=== PATIENT | female | born 1995 | race Caucasian/White ===

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

== ENCOUNTER → 2017-06-26 | Outpatient (CLI) | payer BC ==
--- NOTE | 2017-06-26 15:33 | DIAGNOSTIC IMAGING REPORT ---
R KNEE 1 OR 2 VIEWS ROUTINE HISTORY: 22 years-old Female M25.561 Right knee [id number] acute right knee pain without known injury COMPARISON: None available TECHNIQUE: 2 views of the right knee FINDINGS: There is no acute fracture, dislocation or significant degenerative changes. No osteochondral defect. No large joint effusion, significant soft tissue swelling or opaque foreign body. IMPRESSION: No acute bony abnormality. The above report was generated using voice recognition software. It may contain grammatical, syntax or spelling errors. Electronically signed by: Sheng Sigala M.D. 06/26/2017 3:32 PM Dictated Date/Time: 06/26/2017 3:31 PM
== END | disposition home or self-care (01) ==
LOC: C.RAD 15:06
PROVIDERS: ATTEND Family Medicine
DX: M25.561 Pain in right knee (principal)

== ENCOUNTER → 2017-06-26 | Outpatient (CLI) | payer BC ==
[2017-06-26 13:03] LABS: HEMATOCRIT 35.1 % (37-47); HEMOGLOBIN 11.8 g/dL (12.0-16.0); MEAN CORPUSCULAR HEMOGLOBIN 28.6 pg (25-34); MEAN CORPUSCULAR HGB CONC 33.6 g/dl (32-36); MEAN PLATELET VOLUME 10.2 fL (7.4-10.4); PLATELET COUNT 287 K/uL (130-400); RED CELL DISTRIBUTION WIDTH SD 39.7 fL (36.4-46.3); WHITE BLOOD COUNT 7.19 K/uL (4.8-10.8)
[2017-06-26 14:11] LABS: BLOOD UREA NITROGEN 11 mg/dl (7-18); CARBON DIOXIDE 25 mmol/L (21-32); CREATININE 1.04 mg/dl (0.60-1.20); GLUCOSE 88 mg/dl (70-99); POTASSIUM 3.9 mmol/L (3.5-5.1); SODIUM 138 mmol/L (136-145)
[2017-06-26 14:22] LABS: CHOLESTEROL 161 mg/dl (0-200); LDL CHOLESTEROL CALCULATED 92 mg/dl
== END | disposition home or self-care (01) ==
LOC: C.LABPBG 09:49
PROVIDERS: ATTEND Family Medicine
DX: R10.30 Lower abdominal pain, unspecified (principal); N92.6 Irregular menstruation, unspecified; Z13.220 Encounter for screening for lipoid disorders; Z85.528 Personal history of other malignant neoplasm of kidney

== ENCOUNTER 2021-04-03 08:33 | Inpatient (IN) ==
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
[2021-04-03] MEDS ORDERED: OXYTOCIN 30 UNITS/500 ML BAG IV PRN ×2 (09:30→13:09)
[2021-04-03 10:16] LABS: Hematocrit (blood only) 32.5 % (37-47); Hemoglobin 10.7 g/dL (12.0-16.0); Mean Corpuscular Hemoglobin 29.6 pg (25-34); Mean Corpuscular Hgb Conc 32.9 g/dL (32-36); Mean Corpuscular Volume 89.8 fL (80-100); Platelet Count 243 K/uL (130-400); RDW Coefficient of Variation 14.1 % (11.5-14.5); RDW Standard Deviation 46.2 fL (36.4-46.3); Red Blood Count 3.62 M/uL (4.2-5.4); White Blood Count 11.08 K/uL (4.8-10.8)
[2021-04-03] MEDS ORDERED: Flu Vaccine (Fluarix) 0.5mL SYR (Standard Dose) IM ONE (12:15)
--- NOTE | 2021-04-03 13:09 | Labor Progress Brief Note ---
Date of Service April 03, 2021 Subjective NOts some contractions more painful but most feel like bad menstrual cramps. Assessment & Plan (1) PROM (premature rupture of membranes): (2) with 41 completed weeks gestation: Plan: Discussed options as the same --expectant vs. starting augmentation. Discussed pros/cons of both. They are ok with starting pitocin. fetus category one. Admission and Anticipated Discharge Date Admission Date: April 03, 2021 Physical Exam Physical Exam: cx--unchanged toco--q3-5min efm--130s wtih mod variability, accels to 160s, no decels Results & Data ([place]) Vital Signs (Past 12 Hours) Vital Signs Temp Pulse Resp BP 04/03/21 12:45 36.4 C L 74 20 138/77 04/03/21 11:09 36.4 C L 66 18 142/73 H 04/03/21 09:04 36.7 C 20 04/03/21 08:39 36.7 C 68 20 136/77 Coding Level of Care Code None Diagnoses PROM (premature rupture of membranes) O42.90 with 41 completed weeks gestation Z3A.41
[2021-04-03] MEDS: LACTATED RINGER'S 1,000 ML IV PRN ×3 (13:21→22:15)
[2021-04-03] MEDS ORDERED: BUTORPHANOL TARTRATE 1 MG/ML VIAL IV ONE (15:12)
--- NOTE | 2021-04-03 16:38 | Labor Progress Brief Note ---
Date of Service April 03, 2021 Subjective notes rectal pressure. did note that the stadol helped some. Assessment & Plan (1) PROM (premature rupture of membranes): Plan: Discussed that stadol not for [facility] pain management, and can't be used after 7cm because of concern for sedation of the baby. she is afraid of an epidural because of concern for hurting her spine. Offered anesthesia consult and discussion, declines at this time. Discussed potential need for iupc. Admission and Anticipated Discharge Date Admission Date: April 03, 2021 Physical Exam Physical Exam: cx--unchanged toco--q2-4min, pit at 9 efm--120s with mod variability, accels to 150s, no decels. Results & Data ([facility]) Vital Signs (Past 12 Hours) Vital Signs Temp Pulse Resp BP 04/03/21 16:04 53 L 126/74 04/03/21 15:03 36.6 C 65 20 142/82 H 04/03/21 13:48 36.6 C 62 20 133/80 04/03/21 12:45 36.4 C L 74 20 138/77 04/03/21 11:09 36.4 C L 66 18 142/73 H 04/03/21 09:04 36.7 C 20 04/03/21 08:39 36.7 C 68 20 136/77 Coding Level of Care Code None Diagnoses PROM (premature rupture of membranes) O42.90
[2021-04-03] MEDS ORDERED: SODIUM CHLORIDE 0.9% INJ 10 ML VIAL ONE (17:44)
[2021-04-03] MEDS ORDERED: BUPIVACAINE 0.25% 30 ML VIAL ONE (17:44)
[2021-04-03] MEDS ORDERED: ePHEDrine sulfate 50 MG/ML AMP ONE (17:44)
[2021-04-03] MEDS ORDERED: fentaNYL citrate 100 MCG/2 ML VIAL ONE (17:44)
[2021-04-03] MEDS ORDERED: fentaNYL 2MCG/ML ROPIVACAINE 1.25MG/ML 100 ML BAG EPI ONE (17:45)
[2021-04-03] MEDS ORDERED: fentaNYL 2MCG/ML ROPIVACAINE 1.25MG/ML 100 ML BAG EPI PRN (17:50)
[2021-04-03] MEDS ORDERED: NALOXONE HCL 1 MG in SODIUM CHLORIDE 0.9% 1000ML 1,000 ML IV PRN (17:50)
[2021-04-03] MEDS ORDERED: NALOXONE HCL 0.4 MG/1 ML VIAL/CARP IV PRN (17:50)
[2021-04-03] MEDS ORDERED: ATROPINE SULFATE 0.1 MG/ML 10ML SYR IV PRN (17:50)
[2021-04-03] MEDS ORDERED: diphenhydrAMINE 50 MG/ML VIAL IV PRN (17:50)
[2021-04-03] MEDS ORDERED: ePHEDrine sulfate 50 MG/ML AMP IV PRN ×2 (17:50)
[2021-04-03] MEDS ORDERED: NALBUPHINE HCL INJ 10 MG/ML AMP IV PRN (17:50)
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
--- NOTE | 2021-04-03 19:29 | Labor Progress Brief Note ---
Date of Service April 03, 2021 Subjective comfortable with epidural Assessment & Plan (1) with 41 completed weeks gestation: (2) PROM (premature rupture of membranes): Plan: continue current management. fetus overall reassuring. making change. Admission and Anticipated Discharge Date Admission Date: April 03, 2021 Physical Exam Physical Exam: cx--4-5/100/-2 arom of forebag with light mec toco--q2-3 min , pit at 11 efm--120 with mod variability, accels to 150s, +scalp stim, rare early Results & Data ([facility]) Vital Signs (Past 12 Hours) Vital Signs Temp Pulse Resp BP Pulse Ox 04/03/21 19:25 63 89 L 04/03/21 19:22 71 100 04/03/21 19:17 54 L 100 04/03/21 19:12 65 119/61 100 04/03/21 19:07 55 L 100 04/03/21 19:02 56 L 100 04/03/21 19:00 36.5 C 20 04/03/21 18:57 60 100 04/03/21 18:56 54 L 128/64 91 04/03/21 18:52 53 L 100 04/03/21 18:47 64 100 04/03/21 18:42 67 98 04/03/21 18:37 63 100 04/03/21 18:36 57 L 127/67 04/03/21 18:32 70 100 04/03/21 18:31 61 118/62 04/03/21 18:27 56 L 100 04/03/21 18:25 56 L 124/63 04/03/21 18:22 58 L 100 04/03/21 18:19 52 L 124/61 04/03/21 18:17 62 118/59 L 100 04/03/21 18:15 64 120/61 04/03/21 18:13 62 123/70 04/03/21 18:12 55 L 100 04/03/21 18:11 49 L 127/67 04/03/21 18:09 55 L 134/64 04/03/21 18:07 80 100 04/03/21 18:04 116 H 142/95 H 04/03/21 18:02 110 H 94 04/03/21 17:57 62 100 04/03/21 17:52 76 100 04/03/21 17:00 36.7 C 04/03/21 16:04 53 L 126/74 04/03/21 15:03 36.6 C 65 20 142/82 H 04/03/21 13:48 36.6 C 62 20 133/80 04/03/21 12:45 36.4 C L 74 20 138/77 04/03/21 11:09 36.4 C L 66 18 142/73 H 04/03/21 09:04 36.7 C 20 04/03/21 08:39 36.7 C 68 20 136/77 Coding Level of Care Code None Diagnoses with 41 completed weeks gestation Z3A.41 PROM (premature rupture of membranes) O42.90
[2021-04-03] MEDS ORDERED: ONDANSETRON INJ 2 MG/ML 2 ML VIAL IV PRN (20:37)
--- NOTE | 2021-04-03 20:40 | Labor Progress Brief Note ---
Date of Service April 03, 2021 Subjective comfortable Assessment & Plan (1) Encounter for pre-operative examination: (2) with 41 completed weeks gestation: Plan: making rapid progress after rupture of forebag. head is really pressing down on the cervix so suspect most of the variables are like early with head compression. Will continue to monitor closely, change positions. Anticipating . Admission and Anticipated Discharge Date Admission Date: April 03, 2021 Physical Exam Physical Exam: cx--8-9/100/-1 toco--q2-5min, coupling, pit at [address] iupc failed, could not get around head efm--120s with mod variaibility, variables with contractions, some with a ? late component, excellent scalp stim Results & Data ([facility]) Vital Signs (Past 12 Hours) Vital Signs Temp Pulse Resp BP Pulse Ox 04/03/21 20:32 85 100 04/03/21 20:31 83 91 04/03/21 20:27 62 127/76 100 04/03/21 20:22 61 100 04/03/21 20:17 54 L 100 04/03/21 20:12 58 L 129/74 100 04/03/21 20:09 73 91 04/03/21 20:07 56 L 100 04/03/21 20:02 59 L 100 04/03/21 19:57 61 100 04/03/21 19:56 56 L 127/69 04/03/21 19:52 56 L 100 04/03/21 19:47 61 100 04/03/21 19:42 78 114/76 100 04/03/21 19:37 76 100 04/03/21 19:32 101 H 100 04/03/21 19:27 81 98 04/03/21 19:25 63 89 L 04/03/21 19:22 71 100 04/03/21 19:17 54 L 100 04/03/21 19:12 65 119/61 100 04/03/21 19:07 55 L 100 04/03/21 19:02 56 L 100 04/03/21 19:00 36.5 C 20 04/03/21 18:57 60 100 04/03/21 18:56 54 L 128/64 91 04/03/21 18:52 53 L 100 04/03/21 18:47 64 100 04/03/21 18:42 67 98 04/03/21 18:37 63 100 04/03/21 18:36 57 L 127/67 04/03/21 18:32 70 100 04/03/21 18:31 61 118/62 04/03/21 18:27 56 L 100 04/03/21 18:25 56 L 124/63 04/03/21 18:22 58 L 100 04/03/21 18:19 52 L 124/61 04/03/21 18:17 62 118/59 L 100 04/03/21 18:15 64 120/61 04/03/21 18:13 62 123/70 04/03/21 18:12 55 L 100 04/03/21 18:11 49 L 127/67 04/03/21 18:09 55 L 134/64 04/03/21 18:07 80 100 04/03/21 18:04 116 H 142/95 H 04/03/21 18:02 110 H 94 04/03/21 17:57 62 100 04/03/21 17:52 76 100 04/03/21 17:00 36.7 C 04/03/21 16:04 53 L 126/74 04/03/21 15:03 36.6 C 65 20 142/82 H 04/03/21 13:48 36.6 C 62 20 133/80 04/03/21 12:45 36.4 C L 74 20 138/77 04/03/21 11:09 36.4 C L 66 18 142/73 H 04/03/21 09:04 36.7 C 20 04/03/21 08:39 36.7 C 68 20 136/77 Coding Level of Care Code None Diagnoses Encounter for pre-operative examination Z01.818 with 41 completed weeks gestation Z3A.41
--- NOTE | 2021-04-03 22:09 | Labor Progress Brief Note ---
Date of Service April 03, 2021 Subjective comfortable Assessment & Plan (1) with 41 completed weeks gestation: (2) PROM (premature rupture of membranes): Plan: continues to make progress. Will need to restart pitocin to get contractions a bit closer than every 5 minutes if the baby tolerates. Much improved, category one strip. recheck in one hour and hopefully start pushing. Admission and Anticipated Discharge Date Admission Date: April 03, 2021 Physical Exam Physical Exam: cx--ant lip/0 toco--q5min, pit off efm--120s with mod variability, accels present, +scal stim decels resolved with pit off, o2, position change, fluids Results & Data ([facility]) Vital Signs (Past 12 Hours) Vital Signs Temp Pulse Resp BP Pulse Ox 04/03/21 22:02 55 L 100 04/03/21 21:57 50 L 100 04/03/21 21:56 50 L 120/62 04/03/21 21:52 52 L 100 04/03/21 21:47 57 L 100 04/03/21 21:42 56 L 100 04/03/21 21:41 52 L 119/69 04/03/21 21:37 55 L 100 04/03/21 21:32 54 L 100 04/03/21 21:27 53 L 100 04/03/21 21:26 56 L 123/70 04/03/21 21:22 55 L 100 04/03/21 21:17 57 L 100 04/03/21 21:12 52 L 100 04/03/21 21:11 53 L 119/65 04/03/21 21:07 50 L 100 04/03/21 21:02 55 L 100 04/03/21 20:57 64 100 04/03/21 20:56 51 L 129/61 04/03/21 20:52 70 100 04/03/21 20:47 65 100 04/03/21 20:42 82 100 04/03/21 20:41 95 H 128/86 04/03/21 20:37 120 H 100 04/03/21 20:32 85 100 04/03/21 20:31 83 91 04/03/21 20:27 62 127/76 100 04/03/21 20:22 61 100 04/03/21 20:17 54 L 100 04/03/21 20:12 58 L 129/74 100 04/03/21 20:09 73 91 04/03/21 20:07 56 L 100 04/03/21 20:02 59 L 100 04/03/21 19:57 61 100 04/03/21 19:56 56 L 127/69 04/03/21 19:52 56 L 100 04/03/21 19:47 61 100 04/03/21 19:42 78 114/76 100 04/03/21 19:37 76 100 04/03/21 19:32 101 H 100 04/03/21 19:27 81 98 04/03/21 19:25 63 89 L 04/03/21 19:22 71 100 04/03/21 19:17 54 L 100 04/03/21 19:12 65 119/61 100 04/03/21 19:07 55 L 100 04/03/21 19:02 56 L 100 04/03/21 19:00 36.5 C 20 04/03/21 18:57 60 100 04/03/21 18:56 54 L 128/64 91 04/03/21 18:52 53 L 100 04/03/21 18:47 64 100 04/03/21 18:42 67 98 04/03/21 18:37 63 100 04/03/21 18:36 57 L 127/67 04/03/21 18:32 70 100 04/03/21 18:31 61 118/62 04/03/21 18:27 56 L 100 04/03/21 18:25 56 L 124/63 04/03/21 18:22 58 L 100 04/03/21 18:19 52 L 124/61 04/03/21 18:17 62 118/59 L 100 04/03/21 18:15 64 120/61 04/03/21 18:13 62 123/70 04/03/21 18:12 55 L 100 04/03/21 18:11 49 L 127/67 04/03/21 18:09 55 L 134/64 04/03/21 18:07 80 100 04/03/21 18:04 116 H 142/95 H 04/03/21 18:02 110 H 94 04/03/21 17:57 62 100 04/03/21 17:52 76 100 04/03/21 17:00 36.7 C 04/03/21 16:04 53 L 126/74 04/03/21 15:03 36.6 C 65 20 142/82 H 04/03/21 13:48 36.6 C 62 20 133/80 04/03/21 12:45 36.4 C L 74 20 138/77 04/03/21 11:09 36.4 C L 66 18 142/73 H Coding Level of Care Code None Diagnoses with 41 completed weeks gestation Z3A.41 PROM (premature rupture of membranes) O42.90
--- NOTE | 2021-04-03 23:30 | Labor Progress Brief Note ---
Date of Service April 03, 2021 Subjective comfortable Assessment & Plan (1) with 41 completed weeks gestation: (2) PROM (premature rupture of membranes): Plan: start second stage. Overall reassuring fetus. anticipate . Admission and Anticipated Discharge Date Admission Date: April 03, 2021 Physical Exam Physical Exam: cx--c/c/+2, tabatha toco--q3-5, pit at 2 efm--110 with mod variability, small accels, +scalp stim, occasional variable. Results & Data ([facility]) Vital Signs (Past 12 Hours) Vital Signs Temp Pulse Resp BP Pulse Ox 04/03/21 23:22 80 100 04/03/21 23:17 56 L 100 04/03/21 23:13 54 L 107/53 L 04/03/21 23:12 55 L 100 04/03/21 23:07 56 L 100 04/03/21 23:02 56 L 100 04/03/21 22:57 64 100 04/03/21 22:56 36.8 C 57 L 18 110/60 04/03/21 22:52 85 100 04/03/21 22:47 67 100 04/03/21 22:42 85 100 04/03/21 22:41 53 L 126/66 04/03/21 22:37 54 L 100 04/03/21 22:32 52 L 100 04/03/21 22:27 52 L 127/65 100 04/03/21 22:22 50 L 100 04/03/21 22:17 59 L 100 04/03/21 22:12 55 L 100 04/03/21 22:11 36.6 C 51 L 20 121/67 04/03/21 22:07 58 L 100 04/03/21 22:02 55 L 100 04/03/21 21:57 50 L 100 04/03/21 21:56 50 L 120/62 04/03/21 21:52 52 L 100 04/03/21 21:47 57 L 100 04/03/21 21:42 56 L 100 04/03/21 21:41 52 L 119/69 04/03/21 21:37 55 L 100 04/03/21 21:32 54 L 100 04/03/21 21:27 53 L 100 04/03/21 21:26 56 L 123/70 04/03/21 21:22 55 L 100 04/03/21 21:17 57 L 100 04/03/21 21:12 52 L 100 04/03/21 21:11 53 L 119/65 04/03/21 21:07 50 L 100 04/03/21 21:02 55 L 100 04/03/21 20:57 64 100 04/03/21 20:56 51 L 129/61 04/03/21 20:52 70 100 04/03/21 20:47 65 100 04/03/21 20:42 82 100 04/03/21 20:41 95 H 128/86 04/03/21 20:37 120 H 100 04/03/21 20:32 85 100 04/03/21 20:31 83 91 04/03/21 20:27 62 127/76 100 04/03/21 20:22 61 100 04/03/21 20:17 54 L 100 04/03/21 20:12 58 L 129/74 100 04/03/21 20:09 73 91 04/03/21 20:07 56 L 100 04/03/21 20:02 59 L 100 04/03/21 19:57 61 100 04/03/21 19:56 56 L 127/69 04/03/21 19:52 56 L 100 04/03/21 19:47 61 100 04/03/21 19:42 78 114/76 100 04/03/21 19:37 76 100 04/03/21 19:32 101 H 100 04/03/21 19:27 81 98 04/03/21 19:25 63 89 L 04/03/21 19:22 71 100 04/03/21 19:17 54 L 100 04/03/21 19:12 65 119/61 100 04/03/21 19:07 55 L 100 04/03/21 19:02 56 L 100 04/03/21 19:00 36.5 C 20 04/03/21 18:57 60 100 04/03/21 18:56 54 L 128/64 91 04/03/21 18:52 53 L 100 04/03/21 18:47 64 100 04/03/21 18:42 67 98 04/03/21 18:37 63 100 04/03/21 18:36 57 L 127/67 04/03/21 18:32 70 100 04/03/21 18:31 61 118/62 04/03/21 18:27 56 L 100 04/03/21 18:25 56 L 124/63 04/03/21 18:22 58 L 100 04/03/21 18:19 52 L 124/61 04/03/21 18:17 62 118/59 L 100 04/03/21 18:15 64 120/61 04/03/21 18:13 62 123/70 04/03/21 18:12 55 L 100 04/03/21 18:11 49 L 127/67 04/03/21 18:09 55 L 134/64 04/03/21 18:07 80 100 04/03/21 18:04 116 H 142/95 H 04/03/21 18:02 110 H 94 04/03/21 17:57 62 100 04/03/21 17:52 76 100 04/03/21 17:00 36.7 C 04/03/21 16:04 53 L 126/74 04/03/21 15:03 36.6 C 65 20 142/82 H 04/03/21 13:48 36.6 C 62 20 133/80 04/03/21 12:45 36.4 C L 74 20 138/77 Coding Level of Care Code None Diagnoses with 41 completed weeks gestation Z3A.41 PROM (premature rupture of membranes) O42.90
[2021-04-04] MEDS ORDERED: DIPHTHERIA/TETANUS/PERTUSSIS 0.5 ML SYR/VIAL IM ONE (00:29)
[2021-04-04] MEDS ORDERED: BENZOCAINE 20% AER SPR 82.5 GM CAN EXT PRN (00:29)
[2021-04-04] MEDS ORDERED: ACETAMINOPHEN 325 MG TAB PO PRN (00:29)
[2021-04-04] MEDS ORDERED: IBUPROFEN 600 MG TAB PO PRN (00:29)
[2021-04-04] MEDS ORDERED: OXYTOCIN 30 UNITS/500 ML BAG IV PRN (00:29)
[2021-04-04] MEDS ORDERED: HYDROCORTISONE ACETATE 25 MG SUPP PR PRN (00:29)
[2021-04-04] MEDS ORDERED: oxyCODONE/ACETAMINOPHEN 5mg/325mg TAB PO PRN (00:29)
[2021-04-04] MEDS ORDERED: SUPERCREAM 0.870% 15 GM JAR EXT PRN (00:29)
--- NOTE | 2021-04-04 00:37 | Delivery Summary ---
Vaginal Delivery Summary Date of Service April 04, 2021 Vaginal Delivery Summary and 1st Degree LAC Pre-operative Diagnosis: at 41+ weeks pprom Post-operative Diagnosis: same meconium Procedure: pitocin augmentation epidural arom forebag--meconium first degree lac and repair EBL: 350cc Anesthesia: epidural Procedure: The patient was admitted with prom. She was expectantly managed for 6 hours and then accepted pitocin. She eventually got an epidural. She was then 5cm and a forebag was ruptured for thin meconium. the patient progressed with intermittent variables and some appeared late and so pitocin was d/c. The patient continued to progress and fht improved with d/c. did need to restart the pit and got to 2mu/min to get the contractions a bit closer together. Baseline was in 105-110 for the later part of the labor but always had reassuring variability and scalp stim. The patient progressed to c/c/+2. The patient pushed for approximately 15 minutes with good effort to deliver a viable male in susanna position. FHT in 90s with good response to scalp stim during pushing. A large amount of thin meconium fluid came out after the head. The nose and mouth were bulb suctioned on the perineum and the rest of the infant was then delivered without difficulty. The baby was vigorous. The nose and mouth were again bulb suctioned and the infant was placed in the maternal abdomen for drying and attention. Cord was clamped and cut at one minute of life. Cord blood and segment obtained. Placenta delivered spontaneous, intact with a three vessel cord. Cervix/sulci/rectum/perineum were intact. A first degree vaginal laceration was repaired in the normal standard fashion. Hemostasis obtained with dilute pitocin and fundal massage. Apgars were 8/9. Mother and baby doing well at the end of the delivery. [facility] Vaginal Delivery Charge Delivery Type Details: and 1st Degree LAC
--- NOTE | 2021-04-04 01:09 | Anesthesia Procedure Note ---
Date of Service April 04, 2021 Anesthesia Post Epidural Note Vital Signs Vital Signs: Temp Pulse Resp BP Pulse Ox 98.2 F 82 18 120/63 100 04/03/21 22:56 04/04/21 00:56 04/03/21 22:56 04/04/21 00:56 04/04/21 00:07 Notes Mental Status: alert / awake / arousable and participated in evaluation Nausea / Vomiting: adequately controlled Pain: adequately controlled Airway Patency, RR, SpO2: stable & adequate BP & HR: stable & adequate Hydration State: stable & adequate Neuraxial Anesthesia: was administered and sensory block is resolving Anesthetic Complications: no major complications apparent and Pt Satisfied with anesthetic care Epidural: Removed without complications and With tip intact
[2021-04-04 06:50] LABS: Hemoglobin 9.3 g/dL (12.0-16.0)
[2021-04-04] MEDS: PRENATAL VITAMIN 1 TAB PO SCH (08:08)
[2021-04-04] MEDS: DOCUSATE SODIUM 100 MG CAP PO SCH ×2 (08:09→21:02)
--- NOTE | 2021-04-05 06:55 | Obstetrical Progress Note ---
Date of Service <Ignacio Bolaños DO - Last Filed: 04/05/21 08:18> April 05, 2021 Assessment & Plan <Ignacio Bolaños DO - Last Filed: 04/05/21 08:18> (1) Encounter for care and examination after delivery: 25 yo post day 1 from vaginal delivery, doing well. -Continue routine post care. -vital signs reviewed and WNL. (Tmax 36.9) -Blood type A+, GBS negative, Rubella Immune -Encourage ambulation, monitor and control pain with Motrin, tylenol PRN, resume regular diet, monitor lochia. -encourage breast feeding. -Discussed discharge with the patient. Patient will follow up with Dr. Rodríguez at 6 weeks post . <Elliot Valenzuela MD - Last Filed: 04/08/21 08:19> (1) Encounter for care and examination after delivery: Subjective <Ignacio Bolaños DO - Last Filed: 04/05/21 08:18> Ambulation: ambulating normally Voiding: no voiding problems Passing Gas:: Yes Diet Tolerance:: regular diet Lochia:: Small Feeding Type:: breast feeding Current Pain Level(1-10): 0 Review of Systems Denies fever, chills, sweats Denies shortness of breath, difficulty breathing, chest pain, palpitations, chest pressure. Denies breast pain. Denies dysuria. Denies headache or changes in vision Physical Exam <Ignacio Bolaños DO - Last Filed: 04/05/21 08:18> General: Alert, oriented. No acute distress. Cardiac: Regular rate and rhythm, no murmurs/rubs/gallops. Respiratory: Clear to auscultation bilaterally a/p, no wheezes/rales/rhonchi. No increased work of breathing. Symmetrical chest rise. No respiratory distress. Abdomen: Soft, nontender, nondistended. Bowel sounds present. Uterus: Uterine fundus firm, palpable 3 cm below umbilicus. Lower Extremities: No lower extremity edema or swelling. No deep calf pain. Heladio's negative bilaterally Results & Data ([facility]) <Ignacio Bolaños DO - Last Filed: 04/05/21 08:18> Vital Signs (Past 12 Hours) Vital Signs Temp Pulse Resp BP Pulse Ox 04/05/21 00:45 36.7 C 85 17 114/68 100 04/04/21 19:45 36.9 C 77 20 136/82 100 <Elliot Valenzuela MD - Last Filed: 04/08/21 08:19> Co-Signing Physician Notes Patient seen and evaluated and agree with the above findings and plan. Routine care Resident Activity Tracking <Ignacio Bolaños DO - Last Filed: 04/05/21 08:18> Resident Involvement: Resident Care Provided Care Provided: OB Delivery
[2021-04-05] MEDS: PRENATAL VITAMIN 1 TAB PO SCH (08:28)
[2021-04-05] MEDS: DOCUSATE SODIUM 100 MG CAP PO SCH (08:28)
[2021-04-05] MEDS ORDERED: ESCITALOPRAM OXALATE 20 MG TAB PO SCH (09:00)
--- NOTE | 2021-04-05 15:08 | Communication Note ---
Date of Service: April 05, 2021 per nurse pt was expecting dc home. she is ready to go home per nurse. note reviewed from this am team. will make sure dc instructions reviewed and plan 6wk followup pp check.
[2021-04-05] MEDS ORDERED: bisacodyL 5 MG TABEC PO SCH (20:00)
[2021-04-06] MEDS ORDERED: bisacodyL 10 MG SUPP PR PRN
== END 2021-04-05 16:10 | disposition home or self-care (01) | DRG 807 ==
LOC: OPB 08:33 → 4S1 08:35 → 4S2 04-04 03:03 → UNDODISIN 04-04 12:30

== ENCOUNTER 2022-10-10 18:00 | Inpatient (IN) ==
[2022-10-10] MEDS ORDERED: SODIUM CHLORIDE 0.9% 1000ML 1,000 ML IV ONE ×2 (18:09→19:33)
[2022-10-10] MEDS ORDERED: ONDANSETRON INJ 2 MG/ML 2 ML VIAL IV STA (18:21)
--- NOTE | 2022-10-10 18:26 | Emergency Department Note ---
Impression & Plan UTI (urinary tract infection), Sepsis, Acute hypokalemia, Hypomagnesemia ED Provider Note HISTORY OF PRESENT ILLNESS: Patient is a 27-year-old female presenting with vomiting and diarrhea. Patient reports she has been unable to keep any thing by mouth down for the last 5 days. Reports that she has had multiple episodes of vomiting and explosive diarrhea. Reports fevers up to 102 today. She last took Tylenol at 1300. Reports lower abdominal pain with vomiting and diarrhea. 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 Denies any dysuria. Reports that the left flank hurts where her kidney is. Denies any recent sick contact exposures. Denies any recent travel. Denies any rashes. ROS: as above PHYSICAL EXAM: Constitutional: Patient appears in no acute distress. HENT: Head: Normocephalic and atraumatic. Eyes: EOMI, PERRL Mouth/Throat: Mucous membranes dry. Neck: Trachea midline. Neck supple. Cardiovascular: Tachycardic with regular rhythm. No murmurs, rubs or gallops. Intact distal pulses. Pulmonary/Chest: No respiratory distress. Breath sounds clear and equal bilaterally. No wheezes or rales. No chest wall tenderness to palpation. Abdominal: Abdomen soft, no rebound or guarding. Bilateral lower quadrant TTP. Musculoskeletal: No edema, tenderness or deformity noted. Skin: Warm and dry. No rash, erythema, pallor or cyanosis Psychiatric: Appropriate mood and affect for situation. Neurological: Alert and keenly responsive. CN II-XII grossly intact, moving all extremities equally and fully. MDM: - Vitals signs showed fever and tachycardia. - History obtained via patient. Patient presents with vomiting and diarrhea. Patient reports has been unable to tolerate anything by mouth for the last 5 days. Reports multiple episodes of vomiting and explosive diarrhea. Reports a fever up to 102 today. Reports lower abdominal pain with the vomiting and diarrhea. She has a history of a right-sided nephrectomy secondary to Wilms carissa or. Denies any dysuria. Denies any recent travel or recent sick contact exposure - Chronic conditions affecting care: depression; Wilms' tumor (s/p right nephrectomy) - Differential diagnoses include, but are not limited to: UTI; viral syndrome; diverticulitis; colitis - Order placed for continuous cardiac monitoring. At this time, monitor showed rate of 86 bpm with normal sinus rhythm, per my interpretation. - External medical records reviewed. - Laboratory workup interpreted by myself showed leukocytosis (WBC 11.84) with left shift; normal lactate; hypokalemia (K 3.2); normal creatinine; hypomagnesemia (Mg 1.6); normal procalcitonin - UA shows evidence of infection - CT abdomen/pelvis wo contrast negative for acute pathology. - Patient given 2L NS and 1g IV acetaminophen for fever. Given 1g IV rocephin for UTI. Electrolyte replacement with 10 mEq IV potassium and 1g IV magnesium - Patient meets sepsis criteria. Given patient's 1 kidney in the setting of urinary tract infection and sepsis, will admit to the hospital - Discussion was had with social service assistant about patient's case and need for admission - Hospitalist consulted for admission - [facility] and management. I provided 31 minutes of critical care time to this patient's care outside of billable procedures. ASSESSMENT AND PLAN: Diagnosis: sepsis; UTI; hypokalemia; hypomagnesemia Plan: admit Past Med/Surg History Medical History Acute left-sided back pain Allergic rhinitis Depression with anxiety Encounter for care and examination after delivery Encounter for pre-operative examination Encounter for vaginal delivery GERD (gastroesophageal reflux disease) History of Wilms' tumor (1999) Juvenile rheumatoid arthritis Migraine Post traumatic stress disorder (PTSD) with 41 completed weeks gestation Premenstrual syndrome PROM (premature rupture of membranes) Seizures Solitary left kidney Vitamin D deficiency Surgical History History of appendectomy History of nephrectomy, right (07/1999) History of wisdom tooth extraction Hx of esophagogastroduodenoscopy Family History Father Diabetes Hypertension Mother Diabetes Colonic polyp Depression Grandmother (Paternal) Diabetes Grandmother (Maternal) Kidney disease Diabetes Depression Myocardial infarction Grandfather (Paternal) Prostate cancer Sister Gestational diabetes Other No family history of adverse response to anesthesia Denies family history of Ovarian cancer Breast cancer Colorectal cancer Social History Smoking Status: Former smoker Tobacco Type: E-cigarettes / Vaping Second Hand Exposure: Yes; Do You Dip or Chew Tobacco: No; Hx Alcohol Use: No Hx Substance Use: No Preferred Language: Tamazight Communication Ability: Effective Visual Impairment: Limited Hearing Ability: Normal Cementer Hand Required: No Beliefs That Will Affect Care: None marital status: Single marital status details: Tulio Vazquez (27) [phone] Current Living Situation: Significant Other Current Living Situation Comment: lives with fob, no pets current occupational status: unemployed How many Children do You have: 1 How many Children do You have Comment: 1 child + 2 step children (1st, 3rd, 4th weekend every month) Feels Safe at Home: Yes Childhood Exposure to Second-Hand Smoke: No Diet: regular caffeine: Yes (Soda x 2 per day. ) during the past year weight has: remained stable Dental Care, Regularly: Yes Physical Activity Frequency: Daily Seatbelt Use: always Sunscreen Use: No Assistive Devices: Glasses Allergies Allergies Allergy/AdvReac Type Severity Reaction Status Date / Time adhesive Allergy Intermediate IRRITATION Verified 08/11/22 12:36 TO SKIN, REDNESS pollen extracts Allergy Intermediate ITCHY Verified 08/11/22 12:36 EYES, SNEEZING, COUGH, CONGESTION Sulfa (Sulfonamide Allergy Unknown FAMILY HX. Verified 08/11/22 12:36 Antibiotics) Home Meds Home Medications Medication Instructions Recorded Confirmed cetirizine 10 mg tablet (Zyrtec) 10 mg PO HS 10/10/22 10/10/22 sertraline 100 mg tablet 100 mg PO QPM 10/10/22 10/10/22 Previous Rx's Medication Instructions Recorded levonorgestrel 0.15 mg-ethinyl 1 tab PO HS #84 tabs 12/27/21 estradiol 0.03 mg tablet (Janet (28)) Results & Data (ED) Vital Signs Vital Signs - 24 hr 10/10/22 18:09 10/10/22 18:44 Temperature 38.1 C H Temperature Source Temporal Artery Scan Pulse Rate 108 H 100 H Respiratory Rate 18 Respiratory Effort / Characteristics Non-Labored Respiratory Depth Normal Respiratory Pattern Regular Blood Pressure 146/81 H Blood Pressure Mean 102 Blood Pressure Position Sitting Pulse Oximetry 100 Oxygen Delivery Method Room Air Sepsis Recent Fever Within 48 Hours Yes Sepsis New/Unexplained Change in Mental Status No Sepsis Action Taken by Nursing Physician Notified Laboratory Data 10/10/22 18:17 10/10/22 18:17 Lab Results 10/10/22 10/10/22 10/10/22 Range/Units 18:09 18:17 18:17 WBC 11.84 H (4.8-10.8) K/ul RBC 4.01 L (4.20-5.40) M/uL Hgb 10.6 L (12.0-16.0) g/dl Hct 32.6 L (37.0-47.0) % MCV 81.3 (80.0-100.0) fL MCH 26.4 (25.0-34.0) pg MCHC 32.5 (32.0-36.0) g/dL RDW Std Deviation 39.8 (36.4-46.3) fL RDW Coeff of Liv 13.6 (11.5-14.5) % Plt Count 257 (130-400) K/uL MPV 10.7 (9.4-12.4) fL Immature Gran % (Auto) 0.7 % Neut % (Auto) 79.0 % Lymph % (Auto) 11.1 % [place] % (Auto) 8.8 % Eos % (Auto) 0.2 % Baso % (Auto) 0.2 % Neut # (Auto) 9.36 H (1.40-6.50) K/uL Lymph # (Auto) 1.32 (1.2-3.4) K/uL [place] # (Auto) 1.04 H (0.11-0.59) K/uL Eos # (Auto) 0.02 (0-0.50) K/uL Baso # (Auto) 0.02 (0-0.2) K/uL Immature Gran # (Auto) 0.08 (0.01-0.20) K/uL Sodium 135 L (136-145) mmol/L Potassium 3.2 L (3.5-5.1) mmol/L Chloride 102 (98-107) mmol/L Carbon Dioxide 22 (21-32) mmol/L Anion Gap 11 (3-11) BUN 9 (6-23) mg/dl Creatinine 1.09 (0.6-1.2) mg/dl Est Cr Clr Drug Dosing 114.0 ml/min Est GFR ( Amer) 81.7 ml/min Est GFR (Non-Af Amer) 70.5 ml/min BUN/Creatinine Ratio 8.3 L (10-20) Glucose 95 (70-99(Fasting)) mg/dl Lactate (0.4-2.0) mmol/L Calcium 9.0 (8.6-10.3) mg/dl Magnesium 1.6 L (1.7-2.4) mg/dl Total Bilirubin 0.8 (0.2-1.0) mg/dl AST 12 L (13-39) U/L ALT 11 (7-52) U/L Alkaline Phosphatase 82 (34-104) U/L Total Protein 7.9 (6.0-8.3) gm/dl Albumin 4.1 (3.4-5.0) gm/dl Globulin 3.8 (2.5-4.0) gm/dl Albumin/Globulin Ratio 1.1 (0.9-2) Procalcitonin (0-0.5) ng/ml Urine Color Urine Appearance (Clear) Urine pH (4.5-7.5) Ur Specific [place] (1.000-1.030) Urine Protein (Negative) Urine Glucose (UA) (Negative) Urine Ketones (Negative) Urine Blood (Negative) Urine Nitrite (Negative) Urine Bilirubin (Negative) Urine Urobilinogen (Negative) Ur Leukocyte Esterase (Negative) Urine WBC (Auto) (0-5) /hpf Urine RBC (Auto) (0-4) /hpf U Hyaline Cast (Auto) (0-5) /lpf U Epithel Cells (Auto) (0-5) /lpf Urine Bacteria (Auto) (Negative) POC Ur Test NEG (NEG) Acetaminophen (10-30) ug/ml Anaplasma Smear See Comment Babesia Smear See Comment Lyme Disease IgG Ab (Negative) Lyme Disease IgM Ab (Negative) 10/10/22 10/10/22 10/10/22 Range/Units 18:17 18:17 18:17 WBC (4.8-10.8) K/ul RBC (4.20-5.40) M/uL Hgb (12.0-16.0) g/dl Hct (37.0-47.0) % MCV (80.0-100.0) fL MCH (25.0-34.0) pg MCHC (32.0-36.0) g/dL RDW Std Deviation (36.4-46.3) fL RDW Coeff of Liv (11.5-14.5) % Plt Count (130-400) K/uL MPV (9.4-12.4) fL Immature Gran % (Auto) % Neut % (Auto) % Lymph % (Auto) % [place] % (Auto) % Eos % (Auto) % Baso % (Auto) % Neut # (Auto) (1.40-6.50) K/uL Lymph # (Auto) (1.2-3.4) K/uL [place] # (Auto) (0.11-0.59) K/uL Eos # (Auto) (0-0.50) K/uL Baso # (Auto) (0-0.2) K/uL Immature Gran # (Auto) (0.01-0.20) K/uL Sodium (136-145) mmol/L Potassium (3.5-5.1) mmol/L Chloride (98-107) mmol/L Carbon Dioxide (21-32) mmol/L Anion Gap (3-11) BUN (6-23) mg/dl Creatinine (0.6-1.2) mg/dl Est Cr Clr Drug Dosing ml/min Est GFR ( Amer) ml/min Est GFR (Non-Af Amer) ml/min BUN/Creatinine Ratio (10-20) Glucose (70-99(Fasting)) mg/dl Lactate (0.4-2.0) mmol/L Calcium (8.6-10.3) mg/dl Magnesium (1.7-2.4) mg/dl Total Bilirubin (0.2-1.0) mg/dl AST (13-39) U/L ALT (7-52) U/L Alkaline Phosphatase (34-104) U/L Total Protein (6.0-8.3) gm/dl Albumin (3.4-5.0) gm/dl Globulin (2.5-4.0) gm/dl Albumin/Globulin Ratio (0.9-2) Procalcitonin 0.15 (0-0.5) ng/ml Urine Color Urine Appearance (Clear) Urine pH (4.5-7.5) Ur Specific [place] (1.000-1.030) Urine Protein (Negative) Urine Glucose (UA) (Negative) Urine Ketones (Negative) Urine Blood (Negative) Urine Nitrite (Negative) Urine Bilirubin (Negative) Urine Urobilinogen (Negative) Ur Leukocyte Esterase (Negative) Urine WBC (Auto) (0-5) /hpf Urine RBC (Auto) (0-4) /hpf U Hyaline Cast (Auto) (0-5) /lpf U Epithel Cells (Auto) (0-5) /lpf Urine Bacteria (Auto) (Negative) POC Ur Test (NEG) Acetaminophen < 3 L (10-30) ug/ml Anaplasma Smear Babesia Smear Lyme Disease IgG Ab Positive A (Negative) Lyme Disease IgM Ab Positive A (Negative) 10/10/22 10/10/22 Range/Units 18:30 18:40 WBC (4.8-10.8) K/ul RBC (4.20-5.40) M/uL Hgb (12.0-16.0) g/dl Hct (37.0-47.0) % MCV (80.0-100.0) fL MCH (25.0-34.0) pg MCHC (32.0-36.0) g/dL RDW Std Deviation (36.4-46.3) fL RDW Coeff of Liv (11.5-14.5) % Plt Count (130-400) K/uL MPV (9.4-12.4) fL Immature Gran % (Auto) % Neut % (Auto) % Lymph % (Auto) % [place] % (Auto) % Eos % (Auto) % Baso % (Auto) % Neut # (Auto) (1.40-6.50) K/uL Lymph # (Auto) (1.2-3.4) K/uL [place] # (Auto) (0.11-0.59) K/uL Eos # (Auto) (0-0.50) K/uL Baso # (Auto) (0-0.2) K/uL Immature Gran # (Auto) (0.01-0.20) K/uL Sodium (136-145) mmol/L Potassium (3.5-5.1) mmol/L Chloride (98-107) mmol/L Carbon Dioxide (21-32) mmol/L Anion Gap (3-11) BUN (6-23) mg/dl Creatinine (0.6-1.2) mg/dl Est Cr Clr Drug Dosing ml/min Est GFR ( Amer) ml/min Est GFR (Non-Af Amer) ml/min BUN/Creatinine Ratio (10-20) Glucose (70-99(Fasting)) mg/dl Lactate 0.9 (0.4-2.0) mmol/L Calcium (8.6-10.3) mg/dl Magnesium (1.7-2.4) mg/dl Total Bilirubin (0.2-1.0) mg/dl AST (13-39) U/L ALT (7-52) U/L Alkaline Phosphatase (34-104) U/L Total Protein (6.0-8.3) gm/dl Albumin (3.4-5.0) gm/dl Globulin (2.5-4.0) gm/dl Albumin/Globulin Ratio (0.9-2) Procalcitonin (0-0.5) ng/ml Urine Color Yellow Urine Appearance Cloudy A (Clear) Urine pH 5.5 (4.5-7.5) Ur Specific [place] 1.013 (1.000-1.030) Urine Protein 1+ H (Negative) Urine Glucose (UA) Negative (Negative) Urine Ketones Negative (Negative) Urine Blood 3+ H (Negative) Urine Nitrite Positive A (Negative) Urine Bilirubin Negative (Negative) Urine Urobilinogen Negative (Negative) Ur Leukocyte Esterase 1+ H (Negative) Urine WBC (Auto) >30 H (0-5) /hpf Urine RBC (Auto) 10-30 H (0-4) /hpf U Hyaline Cast (Auto) 10-30 H (0-5) /lpf U Epithel Cells (Auto) 10-20 H (0-5) /lpf Urine Bacteria (Auto) 2+ H (Negative) POC Ur Test (NEG) Acetaminophen (10-30) ug/ml Anaplasma Smear Babesia Smear Lyme Disease IgG Ab (Negative) Lyme Disease IgM Ab (Negative) Administered Medications Discontinued Medications Sodium Chloride (Nss 1000ml) 1,000 mls @ 999 mls/hr IV .Q1H1M ONE Stop: 10/10/22 19:09 Last Infusion: 10/10/22 19:49 Dose: 0 mls/hr Documented By: Admin: 10/10/22 18:25 Dose: 999 mls/hr Documented By: JARRED Acetaminophen (Ofirmev) 1,000 mg in 100 mls @ 400 mls/hr IV NOW STA Stop: 10/10/22 19:32 Last Admin: 10/10/22 19:46 Dose: 400 mls/hr Documented By: JARRED Potassium Chloride (K Dylan / Wtr) 10 meq in 100 mls @ 100 mls/hr IV ONE ONE Stop: 10/10/22 20:18 Last Admin: 10/10/22 19:43 Dose: 100 mls/hr Documented By: JARRED Sodium Chloride (Nss 1000ml) 1,000 mls @ 999 mls/hr IV .Q1H1M ONE Stop: 10/10/22 20:33 Last Admin: 10/10/22 20:08 Dose: 999 mls/hr Documented By: JARRED Ondansetron HCl (Ondansetron Inj 2 Mg/Ml 2 Ml Vial) 4 mg IV NOW STA Stop: 10/10/22 18:22 Last Admin: 10/10/22 18:29 Dose: 4 mg Documented By: JARRED Imaging Data Radiologist's Impression: Abdomen/Pelvis CT 10/10/22 18:22 Exam(s): CT ABDOMEN + PELVIS Without Contrast EXAM: CT Abdomen and Pelvis Without Intravenous Contrast CLINICAL HISTORY: Reason for exam: lower abd pain; vomiting/diarrhea. TECHNIQUE: Axial computed tomography images of the abdomen and pelvis without intravenous contrast. Automated exposure control was utilized for the study. A dose lowering technique was utilized adhering to the principles of ALARA. COMPARISON: 07/05/18 FINDINGS: ABDOMEN: Liver: Unremarkable. Gallbladder and bile ducts: No radiodense stones. No biliary ductal dilation. Pancreas: Unremarkable. Spleen: Unremarkable. Adrenals: Unremarkable. Kidneys and ureters: Right kidney is not visualized. Hypertrophy of the left kidney. No hydronephrosis or urolithiasis. Stomach and bowel: No caprice mural thickening. Nonobstructive bowel gas pattern. PELVIS: Appendix: Appendix not visualized. Bladder: Unremarkable. Reproductive: Tampon. ABDOMEN and PELVIS: Intraperitoneal space: Unremarkable. Bones/joints: No acute fracture. Soft tissues: Unremarkable. Vasculature: No acute process. IMPRESSION: No evidence of colitis. Nonobstructive bowel gas pattern. Electronically signed by: Ramiro Ford M.D. 10/10/22 19:39 PM Discharge Plan Visit Data Chief Complaint: Dehydration Stated Complaint: UNABLE TO DRINK/EAT THURSDAY,HEADACHE,KIDNEY PAIN ED Provider: Jayda Strauss Discharge Problem: UTI (urinary tract infection), Sepsis, Acute hypokalemia, Hypomagnesemia Forms Stand Alone Forms: [facility] [employer] Prescriptions Prescriptions: No Action levonorgestrel-ethinyl estrad [Janet (28)] 0.15-0.03 mg tablet 1 tab PO HS Qty: 84 11RF cetirizine [Zyrtec] 10 mg Tablet 10 mg PO HS sertraline 100 mg tablet 100 mg PO QPM Referrals Referrals: Ambar Simmons DO [Primary Care Provider] -
[2022-10-10 19:07] LABS: Basophils # (auto) 0.02 K/uL (0-0.2); Basophils % (auto) 0.2 %; Eosinophils # (auto) 0.02 K/uL (0-0.50); Eosinophils % (auto) 0.2 %; Hematocrit (blood only) 32.6 % (37.0-47.0); Hemoglobin 10.6 g/dl (12.0-16.0); Immature Granulocytes # (auto) 0.08 K/uL (0.01-0.20); Immature Granulocytes % (auto) 0.7 %; Lymphocytes # (auto) 1.32 K/uL (1.2-3.4); Lymphocytes % (auto) 11.1 %; Mean Corpuscular Hemoglobin 26.4 pg (25.0-34.0); Mean Corpuscular Hgb Conc 32.5 g/dL (32.0-36.0); Mean Corpuscular Volume 81.3 fL (80.0-100.0); Mean Platelet Volume 10.7 fL (9.4-12.4); Monocytes # (auto) 1.04 K/uL (0.11-0.59); Monocytes % (auto) 8.8 %; Neutrophils # (auto) 9.36 K/uL (1.40-6.50); Platelet Count 257 K/uL (130-400); RDW Coefficient of Variation 13.6 % (11.5-14.5); RDW Standard Deviation 39.8 fL (36.4-46.3); Red Blood Count 4.01 M/uL (4.20-5.40); White Blood Count 11.84 K/ul (4.8-10.8)
[2022-10-10 19:16] LABS: Appearance Urine Cloudy (Clear); Bacteria Urine Automated 2+ (Negative); Bilirubin Urine Negative (Negative); Blood Urine 3+ (Negative); Color Urine Yellow; Glucose Urine UA Negative (Negative); Ketones Urine Negative (Negative); Leukocyte Esterase Urine 1+ (Negative); Nitrite Urine Positive (Negative); Protein Urine 1+ (Negative); Specific Gravity Urine 1.013 (1.000-1.030); Urobilinogen Urine Negative (Negative); WBC Urine Automated >30 /hpf (0-5); pH Urine 5.5 (4.5-7.5)
[2022-10-10 19:17] LABS: Albumin Globulin Ratio 1.1 (0.9-2); Albumin Level 4.1 gm/dl (3.4-5.0); BUN Creatinine Ratio 8.3 (10-20); Bilirubin,Total 0.8 mg/dl (0.2-1.0); Est GFR (African American) 81.7 ml/min; Est GFR (Non-African American) 70.5 ml/min; Globulin 3.8 gm/dl (2.5-4.0); Magnesium 1.6 mg/dl (1.7-2.4); Potassium 3.2 mmol/L (3.5-5.1); Total Protein 7.9 gm/dl (6.0-8.3)
[2022-10-10] MEDS ORDERED: ACETAMINOPHEN 1,000 MG/100 ML VIAL IV STA (19:18)
[2022-10-10] MEDS ORDERED: POTASSIUM CHLORIDE / WTR 10 MEQ/100 ML PLCT IV ONE ×2 (19:19→22:10)
[2022-10-10] MEDS ORDERED: MAGNESIUM SULFATE / D5W 1 GM/100 ML BAG IV STA (19:19)
[2022-10-10] MEDS ORDERED: cefTRIAXone SODIUM 1,000 MG in DEXTROSE 5% AD-VAN 50 ML IV STA (19:29)
--- NOTE | 2022-10-10 19:40 | CT Scan Report ---
Exam(s): CT ABDOMEN + PELVIS Without Contrast EXAM: CT Abdomen and Pelvis Without Intravenous Contrast CLINICAL HISTORY: Reason for exam: lower abd pain; vomiting/diarrhea. TECHNIQUE: Axial computed tomography images of the abdomen and pelvis without intravenous contrast. Automated exposure control was utilized for the study. A dose lowering technique was utilized adhering to the principles of ALARA. COMPARISON: 07/05/18 FINDINGS: ABDOMEN: Liver: Unremarkable. Gallbladder and bile ducts: No radiodense stones. No biliary ductal dilation. Pancreas: Unremarkable. Spleen: Unremarkable. Adrenals: Unremarkable. Kidneys and ureters: Right kidney is not visualized. Hypertrophy of the left kidney. No hydronephrosis or urolithiasis. Stomach and bowel: No caprice mural thickening. Nonobstructive bowel gas pattern. PELVIS: Appendix: Appendix not visualized. Bladder: Unremarkable. Reproductive: Tampon. ABDOMEN and PELVIS: Intraperitoneal space: Unremarkable. Bones/joints: No acute fracture. Soft tissues: Unremarkable. Vasculature: No acute process. IMPRESSION: No evidence of colitis. Nonobstructive bowel gas pattern. Electronically signed by: Ramiro Ford M.D. 10/10/22 19:39 PM
[2022-10-10 20:10] LABS: Lyme Ab IgG w/WB Rflx Positive (Negative); Lyme Ab IgM w/WB Rflx Positive (Negative)
--- NOTE | 2022-10-10 20:23 | History & Physical Report ---
Date of Service October 10, 2022 Assessment & Plan (1) UTI (urinary tract infection): Plan: Sepsis in the setting of UTI - UA consistent with UTI - CT without signs of pyelonephritics, although clinically presentation is consistent with - continue ceftriaxone - s/p 2L NSS in ED, continue LR @ 125ml/hr - blood and urine cultures pending - Tylenol prn for fever Anxiety/Depression - Continue sertraline Hypomagnesia - MG= 1.6 on admission - Repleted Hypokalemia - K= 3.2 - Repleted VTE Prophylaxis: low risk, ambulate as tolerated, SCDs Dispo: PCU Diet: Full Code: Full (2) Sepsis: (3) Acute hypokalemia: (4) Hypomagnesemia: (5) Acute left-sided back pain: (6) History of Wilms' tumor: (7) Depression with anxiety: History of Present Illness Primary Care Provider: Ambar Simmons, DO 27 year old female with a past medical history of Depression, anxiety, PTSD, h/o Wilms tumor s/p R nephrectomy, juvenile RA presenting with nausea, vomiting, flank pain. Started on Thursday. Has been febrile up to 102. Has not been eating much since Thursday. Has been taking Tylenol prn for fever. Complaining over left sided flank pain. Does not complain of any urinary symptoms dysuria, increased frequency. No recent sick contacts. Has a 1 and 1/2 year old and is . ED Course Significant for: SIRS+ (tachycardia, afebrile, RR), UA nitrite +, blood, LE, CT abdomen/pelvis without acute findings. S/p 2L NSS and 1g Rocpehin. Allergies Allergy/AdvReac Type Severity Reaction Status Date / Time adhesive Allergy Intermediate IRRITATION Verified 08/11/22 12:36 TO SKIN, REDNESS pollen extracts Allergy Intermediate ITCHY Verified 08/11/22 12:36 EYES, SNEEZING, COUGH, CONGESTION Sulfa (Sulfonamide Allergy Unknown FAMILY HX. Verified 08/11/22 12:36 Antibiotics) Home Medications Medication Instructions Recorded Confirmed Type levonorgestrel 0.15 mg-ethinyl 1 tab PO HS #84 tabs 12/27/21 10/10/22 Rx estradiol 0.03 mg tablet (Kurvelo (28)) cetirizine 10 mg tablet (Zyrtec) 10 mg PO HS 10/10/22 10/10/22 History sertraline 100 mg tablet 100 mg PO QPM 10/10/22 10/10/22 History cefdinir 300 mg capsule 300 mg PO BID 10 days #20 caps 10/11/22 Rx Past Med/Surg History Medical History Acute left-sided back pain Allergic rhinitis Depression with anxiety Encounter for care and examination after delivery Encounter for pre-operative examination Encounter for vaginal delivery GERD (gastroesophageal reflux disease) History of Wilms' tumor (1999) Juvenile rheumatoid arthritis Migraine Post traumatic stress disorder (PTSD) with 41 completed weeks gestation Premenstrual syndrome PROM (premature rupture of membranes) Seizures Solitary left kidney Vitamin D deficiency Surgical History History of appendectomy History of nephrectomy, right (07/1999) History of wisdom tooth extraction Hx of esophagogastroduodenoscopy Family History Father Diabetes Hypertension Mother Diabetes Colonic polyp Depression Grandmother (Paternal) Diabetes Grandmother (Maternal) Kidney disease Diabetes Depression Myocardial infarction Grandfather (Paternal) Prostate cancer Sister Gestational diabetes Other No family history of adverse response to anesthesia Denies family history of Ovarian cancer Breast cancer Colorectal cancer Social History Smoking Status: Never smoker Tobacco Type: E-cigarettes / Vaping Second Hand Exposure: Yes; Do You Dip or Chew Tobacco: No; Hx Alcohol Use: No Hx Substance Use: No Preferred Language: Iraqi Communication Ability: Effective Visual Impairment: Limited Hearing Ability: Normal Building Drafter Required: No Beliefs That Will Affect Care: None marital status: Single marital status details: Tulio Vazquez (27) [phone] Current Living Situation: Family Current Living Situation Comment: lives with fob, no pets current occupational status: unemployed How many Children do You have: 1 How many Children do You have Comment: 1 child + 2 step children (1st, 3rd, 4th weekend every month) Other Information That Helps Us Care for You: No Feels Safe at Home: Yes Safety Concerns: Feels Safe At This Time Childhood Exposure to Second-Hand Smoke: No Diet: regular caffeine: Yes (Soda x 2 per day. ) during the past year weight has: remained stable Dental Care, Regularly: Yes Physical Activity Frequency: Daily Seatbelt Use: always Sunscreen Use: No Assistive Devices: Glasses Review of Systems Review of Systems: As per above Physical Exam Physical Exam: Constitutional: well-appearing, no acute distress HEENT: NCAT, no conjunctival injection CV: regular rhythm, no murmur appreciated, extremities well-perfused, no LE edema Resp: CTABL, no wheezes/rales/rhonchi appreciated, no increased work of breathing GI: soft, nondistended, nontender, BS normoactive, + CVA tenderness left MSK: no gross deformities appreciated Skin: warm, dry, no rash appreciated Neuro: alert, oriented, no focal neurologic deficit appreciated Results & Data Results & Data Vital Signs (Past 12 Hours) Vital Signs Temp Pulse Resp BP Pulse Ox O2 Del Method 10/10/22 18:44 100 H 10/10/22 18:09 38.1 C H 108 H 18 146/81 H 100 Room Air Supervising Physician Co-Signing Physician Notes Attending addendum: I have physically seen this patient, have supervised the medical residents activities, and agree with the H&P unless as otherwise noted. Assessment and Plan: Urinary tract infection/Wilms tumor/status post nephrectomy- Follow urine culture and sensitivity Ceftriaxone 2 g IV daily Status post 2 L normal saline bolus in the ED LR at 125 mils per hour Acetaminophen 650 mg by mouth every 6 hours as needed for mild pain or fever Anxiety/depression- Continue sertraline Hypomagnesemia/hypokalemia- Magnesium 1.6, potassium 3.2 on admission Replete both, repeat laboratories in a.m. Remaining orders and notations as noted Resident Activity Tracking Resident Involvement: Resident Care Provided Care Provided: Adult [facility]
[2022-10-10 21:09] LABS: Adenovirus PCR Not Detected (NotDetected); Bordetella parapertussis PCR Not Detected (NotDetected); Bordetella pertussis PCR Not Detected (NotDetected); Chlamydia pneumoniae PCR Not Detected (NotDetected); Coronavirus 229E PCR Not Detected (NotDetected); Coronavirus CoV-2 (COVID19)PCR Not Detected (NotDetected); Coronavirus HKU1 PCR Not Detected (NotDetected); Coronavirus NL63 PCR Not Detected (NotDetected); Coronavirus OC43PCR Not Detected (NotDetected); Human Metapneumovirus PCR Not Detected (NotDetected); Influenza A PCR Not Detected (NotDetected); Influenza B PCR Not Detected (NotDetected); Mycoplasma pneumoniae PCR Not Detected (NotDetected); Parainfluenza Virus 1 PCR Not Detected (NotDetected); Parainfluenza Virus 2 PCR Not Detected (NotDetected); Parainfluenza Virus 3 PCR Not Detected (NotDetected); Parainfluenza Virus 4 PCR Not Detected (NotDetected); Respiratory Syncytial VirusPCR Not Detected (NotDetected); Rhinovirus/Enterovirus PCR Not Detected (NotDetected)
[2022-10-10] MEDS: LACTATED RINGER'S 1,000 ML IV SCH (22:47)
[2022-10-11] MEDS: ACETAMINOPHEN 500 MG TAB PO PRN ×2 (03:24→15:00)
[2022-10-11] MEDS: LACTATED RINGER'S 1,000 ML IV SCH ×2 (06:05→13:43)
[2022-10-11 07:15] LABS: Basophils # (auto) 0.01 K/uL (0-0.2); Basophils % (auto) 0.1 %; Eosinophils # (auto) 0.03 K/uL (0-0.50); Eosinophils % (auto) 0.3 %; Hematocrit (blood only) 28.5 % (37.0-47.0); Hemoglobin 9.2 g/dl (12.0-16.0); Immature Granulocytes # (auto) 0.06 K/uL (0.01-0.20); Immature Granulocytes % (auto) 0.6 %; Lymphocytes # (auto) 1.43 K/uL (1.2-3.4); Lymphocytes % (auto) 15.1 %; Mean Corpuscular Hemoglobin 26.4 pg (25.0-34.0); Mean Corpuscular Hgb Conc 32.3 g/dL (32.0-36.0); Mean Corpuscular Volume 81.9 fL (80.0-100.0); Monocytes # (auto) 1.13 K/uL (0.11-0.59); Neutrophils # (auto) 6.79 K/uL (1.40-6.50); Neutrophils % (auto) 71.9 %; Platelet Count 204 K/uL (130-400); RDW Coefficient of Variation 13.7 % (11.5-14.5); RDW Standard Deviation 40.3 fL (36.4-46.3); Red Blood Count 3.48 M/uL (4.20-5.40); White Blood Count 9.45 K/ul (4.8-10.8)
--- NOTE | 2022-10-11 07:15 | Hospitalist Progress Note ---
Date of Service October 11, 2022 Assessment & Plan (1) UTI (urinary tract infection): Plan: #Sepsis in the setting of UTI Urine Cx gram negative bacilli Blood Cx pending UA consistent with UTI CT without signs of pyelonephritis, although clinically presentation is consistent continue ceftriaxone continue LR @ 125ml/hr blood and urine cultures pending Tylenol prn for fever #Anxiety/Depression Continue sertraline #Hypomagnesia Mg = 1.6 on admission Repleted #Hypokalemia K= 3.2 Repleted VTE Prophylaxis: low risk, ambulate as tolerated, SCDs Dispo: PCU Diet: Full Code: Full (2) Sepsis: (3) Acute hypokalemia: (4) Hypomagnesemia: (5) Acute left-sided back pain: (6) History of Wilms' tumor: (7) Depression with anxiety: Admission and Anticipated Discharge Date Admission Date: October 10, 2022 Subjective 27 year old female PMHx Depression, anxiety, PTSD, h/o Wilms tumor s/p R nephrectomy, juvenile RA presenting admitted for nausea, vomiting, L-flank pain. as been febrile up to 102. Has not been eating much since Thursday. This am: resting comfortably in bed, flank pain largely resolved. Continues to deny dysuria, urinary frequency. Denies febrile symptoms, chills, N/V/D. Wishes to return home. Review of Systems Review of Systems: reviewed, see HPI Physical Exam Physical Exam: General: patient resting comfortably, appears fatigued NAD, non-toxic in appearance, AA&O x 4, answers questions appropriately and follows commands. Skin: warm, dry, intact HEENT: NC/AT, anicteric sclera, conjunctiva without injection, moist mucus membranes, trachea midline, no thyromegaly, no JVD Heart: +S1/S2, regular, no m/r/g Lungs: equal air entry bilaterally, no rales/rhonchi/wheezes Abd: +BS, soft, NT/ND, no masses/organomegaly/ascites Ext: warm, no clubbing/cyanosis or edema Neuro: nonfocal, patient AA&O x 4, speech intact, no facial droop, moving all extremities on command. Results & Data Results & Data Vital Signs (Past 12 Hours) Vital Signs Vital Signs Height Weight Body Mass Index Blood Pressure Blood Pressure Position Temperature Temperature Source 5 ft 11 in 124.6 kg 38.2 112/70 Semi-fowlers 37.4 C Oral 10/10/22 22:40 10/11/22 03:19 10/10/22 22:40 10/11/22 03:11 10/11/22 03:11 10/11/22 04:30 10/11/22 04:30 Pulse Rate Respiratory Rate Pulse Oximetry 119 H 20 90 10/11/22 03:11 10/11/22 03:50 10/11/22 03:11 Laboratory Results Abnormal lab results 10/10/22 10/10/22 10/10/22 Range/Units 18:17 18:17 18:17 WBC 11.84 H (4.8-10.8) K/ul RBC 4.01 L (4.20-5.40) M/uL Hgb 10.6 L (12.0-16.0) g/dl Hct 32.6 L (37.0-47.0) % Neut # (Auto) 9.36 H (1.40-6.50) K/uL Floyd # (Auto) 1.04 H (0.11-0.59) K/uL Sodium 135 L (136-145) mmol/L Potassium 3.2 L (3.5-5.1) mmol/L BUN/Creatinine Ratio 8.3 L (10-20) Magnesium 1.6 L (1.7-2.4) mg/dl AST 12 L (13-39) U/L Urine Appearance (Clear) Urine Protein (Negative) Urine Blood (Negative) Urine Nitrite (Negative) Ur Leukocyte Esterase (Negative) Urine WBC (Auto) (0-5) /hpf Urine RBC (Auto) (0-4) /hpf U Hyaline Cast (Auto) (0-5) /lpf U Epithel Cells (Auto) (0-5) /lpf Urine Bacteria (Auto) (Negative) Acetaminophen (10-30) ug/ml Lyme Disease IgG Ab Positive A (Negative) Lyme Disease IgM Ab Positive A (Negative) 10/10/22 10/10/22 Range/Units 18:17 18:30 WBC (4.8-10.8) K/ul RBC (4.20-5.40) M/uL Hgb (12.0-16.0) g/dl Hct (37.0-47.0) % Neut # (Auto) (1.40-6.50) K/uL Floyd # (Auto) (0.11-0.59) K/uL Sodium (136-145) mmol/L Potassium (3.5-5.1) mmol/L BUN/Creatinine Ratio (10-20) Magnesium (1.7-2.4) mg/dl AST (13-39) U/L Urine Appearance Cloudy A (Clear) Urine Protein 1+ H (Negative) Urine Blood 3+ H (Negative) Urine Nitrite Positive A (Negative) Ur Leukocyte Esterase 1+ H (Negative) Urine WBC (Auto) >30 H (0-5) /hpf Urine RBC (Auto) 10-30 H (0-4) /hpf U Hyaline Cast (Auto) 10-30 H (0-5) /lpf U Epithel Cells (Auto) 10-20 H (0-5) /lpf Urine Bacteria (Auto) 2+ H (Negative) Acetaminophen < 3 L (10-30) ug/ml Lyme Disease IgG Ab (Negative) Lyme Disease IgM Ab (Negative)
[2022-10-11 08:02] LABS: Albumin Globulin Ratio 1.1 (0.9-2); Albumin Level 3.2 gm/dl (3.4-5.0); Bilirubin,Total 0.6 mg/dl (0.2-1.0); Creatinine Clr Calc Pharmacy 125.3 ml/min; Est GFR (African American) 90.7 ml/min; Est GFR (Non-African American) 78.2 ml/min; Globulin 2.9 gm/dl (2.5-4.0); Magnesium 1.8 mg/dl (1.7-2.4); Potassium 3.2 mmol/L (3.5-5.1); Total Protein 6.1 gm/dl (6.0-8.3)
[2022-10-11] MEDS ORDERED: cefTRIAXone SODIUM 2,000 MG in DEXTROSE 5% 50 ML IV SCH (09:00)
--- NOTE | 2022-10-11 14:45 | Discharge Summary ---
Date of Service October 11, 2022 Admission HPI Per Admitting Provider 27 year old female with a past medical history of Depression, anxiety, PTSD, h/o Wilms tumor s/p R nephrectomy, juvenile RA presenting with nausea, vomiting, flank pain. Started on Thursday. Has been febrile up to 102. Has not been eating much since Thursday. Has been taking Tylenol prn for fever. Complaining over left sided flank pain. Does not complain of any urinary symptoms dysuria, increased frequency. No recent sick contacts. Has a 1 and 1/2 year old and is . ED Course Significant for: SIRS+ (tachycardia, afebrile, RR), UA nitrite +, blood, LE, CT abdomen/pelvis without acute findings. S/p 2L NSS and 1g Rocpehin. Admission Exam Per Admitting Provider Constitutional: well-appearing, no acute distress HEENT: NCAT, no conjunctival injection CV: regular rhythm, no murmur appreciated, extremities well-perfused, no LE edema Resp: CTABL, no wheezes/rales/rhonchi appreciated, no increased work of breathing GI: soft, nondistended, nontender, BS normoactive, + CVA tenderness left MSK: no gross deformities appreciated Skin: warm, dry, no rash appreciated Neuro: alert, oriented, no focal neurologic deficit appreciated Principal Diagnosis UTI, possible pyelonephritis Discharge Exam General: patient resting comfortably, NAD, non-toxic in appearance, AA&O x 4, answers questions appropriately and follows commands. Skin: warm, dry, intact HEENT: NC/AT, anicteric sclera, conjunctiva without injection, moist mucus membr anes, trachea midline, no thyromegaly, no JVD Heart: +S1/S2, regular, no m/r/g Lungs: equal air entry bilaterally, no rales/rhonchi/wheezes Abd: +BS, soft, NT/ND, no masses/organomegaly/ascites Ext: warm, no clubbing/cyanosis or edema Neuro: nonfocal, patient AA&O x 4, speech intact, no facial droop, moving all extremities on command. Discharge Data Allergies Allergy/AdvReac Type Severity Reaction Status Date / Time adhesive Allergy Intermediate IRRITATION Verified 08/11/22 12:36 TO SKIN, REDNESS pollen extracts Allergy Intermediate ITCHY Verified 08/11/22 12:36 EYES, SNEEZING, COUGH, CONGESTION Sulfa (Sulfonamide Allergy Unknown FAMILY HX. Verified 08/11/22 12:36 Antibiotics) Consultations 10/10/22 20:10 ED Decision to Admit Stat Ordered Studies 10/10/22 18:22 CT Abd and Pelvis [CT abd pelvis wo con] Stat Hospital Course (1) UTI (urinary tract infection): (2) Acute left-sided back pain: Plan 27 yo female was admitted overnight with flank pain and fever. She was empirically treated with one dose of 1g ceftriaxone in the ED and one 2g doses of ceftriaxone IV while admitted for suspected pyelonephritis. Urine and blood cultures we drawn before the initiation of antibiotics. On 10/11/22 the urine culture was positive for gram negative bacilli without speciation or sensitivities. In the setting of dramatic clinical improvement and in consultation with the patient it was decided that she could go home on cefdinir 300mg BID for 10 days. It was explained to the patient that if, when her cultures speciate and we obtain sensitivities, cefdinir is not an appropriate empiric antibiotic she will be contacted and adjustments will be made. She was instructed to follow up promptly with her PCP and to return to the hospital if she begins feeling worse or has increased fevers. Total Time Total Time Spent Total Time Spent (In Minutes): <30 Discharge Plan Discharge Items Patient Disposition: Home - Self-Care Reason For Visit: SEPSIS Discharge Diagnosis: Urinary Tract Infection, possible pyelonephritis Condition on Discharge: Good Activity: As commented below Activity Comment: Resume activity as tolerated. Non-emergency contact: Primary Care Provider Call non-emergency contact if: your symptoms worsen, your pain is not controlled, your pain is worsening and your temperature is above 101.5 Follow-up/Referrals: Ambar Simmons DO [Primary Care Provider] - Diet: Regular Fluids: 2000ml (8 cups) Addtl Attending Provider Instructions: You were admitted to the hospital with flank pain and fever and found to have a urinary tract infection. With antibiotics your fever subsided and you indicated that you would like to go home to complete your course of therapy. Your care team decided that this was appropriate, however, we have not gotten the results of your urine culture. This culture will tell us exactly what bacteria you have and what antibiotics are best to treat it. You are being discharged on a ten day course of an antibiotic called cefdinir. You will take this twice per day for a total of 20 doses. If your culture comes back and this antibiotic is not effective to treat your infection we may need to change the antibiotic. If this is the case, we will contact you. Of note, this antibiotic is safe to take while . So, when you return home you may return to as normal. A discharge summary will be sent to your primary care physician to ensure continuity of care. Please bring this discharge summary with you to your next office appointment so that your provider can review it at that time. Medications: Your medication list has been reviewed and reconciled upon discharge to ensure accuracy and continuity of care. An updated list of all your medications is included with your hospital discharge paperwork. Please review this list closely and make note of any changes to your medications. Follow up appointments: - Make a follow up appointment with your PCP within the next week. It is very important that you follow up with them shortly after discharge from the hospital. - Keep all of your follow up appointments as already scheduled. If you cannot make an appointment, notify your provider. Pending Studies at Discharge: Yes Studies:: Urine culture Stand-Alone Forms: My [facility], Work/School Release, Smoking Cessation Medications and DC Order Prescriptions: New cefdinir 300 mg capsule 300 mg PO BID 10 Days Qty: 20 0RF Continued levonorgestrel-ethinyl estrad [Kurvelo (28)] 0.15-0.03 mg tablet 1 tab PO HS Qty: 84 11RF cetirizine [Zyrtec] 10 mg Tablet 10 mg PO HS sertraline 100 mg tablet 100 mg PO QPM Discharge Orders: Discharge Order (Routine); Ordered 10/11/22 Ordered By: Alejo Brown Admission Data Admit Date/Time: 10/10/22 20:27 Attending Provider: Liam Chung Admit Provider: Ena Strickland Primary Care Provider: Ambar Simmons Other Providers: Bill Cheung Other Interventions: Discharge Summary Assessment (RN) Last Done: 10/11/22 15:27 Supervising Physician Co-Signing Physician Notes I personally examined the patient and verified all badillo points of history and exam, discussed case, and agree with decision making with Dr Brown feeling better. Still fatigued, but otherwise much better and would very much like to go home. Discussed risk/benefits of home on empiric antibiotics pending final culture resultsshe and both expressed understanding and would like to get home. Vitals noted, in general she is awake and alert pleasant no distress. HEENT normocephalic atraumatic mucous membranes moist. Breathing unlabored no accessory muscle use good effort. Skin shows no rashes no pallor or icterus. Neuro without focal deficits. UTI with sepsis present on admissionbehaving much like a pyelonephritis. Stable for home, discussed that her culture is still pending, but since she improved on ceftriaxone, sending home on oral 3rd gen cephalosporin is likely to cover it. We will follow the culture results, and she is aware that we may need to adjust antibiotic course if we are surprised by sensitivities. In spite of that, she would very much like to go home and it seems quite reasonable. Treat pyelonephritis with cefdinir, discussed that it will likely take about 4 weeks for her to slowly feel back to her regular self. Follow-up on cultures. Safe/stable for home. Otherwise as above Resident Activity Tracking Resident Involvement: Resident Care Provided Care Provided: Adult Hospital Medicine
--- NOTE | 2022-10-11 18:22 | Billing Data ---
Date of Service October 11, 2022 Coding Level of Care Code 70779 IN/OBS DISCH 30 MIN/LESS
[2022-10-11] MEDS ORDERED: CETIRIZINE HCL 10 MG TABLET PO SCH (21:00)
[2022-10-11] MEDS ORDERED: SERTRALINE HCL 100 MG TABLET PO SCH (21:00)
--- NOTE | 2022-10-12 05:11 | Billing Data ---
Date of Service October 12, 2022 Coding Level of Care Code 29658 INT INP/OBS CARE
[2022-10-14 03:12] LABS: 18KDIGG Band REACTIVE; 23KDIGG Band NON-REACTIVE; 23KDIGM Band REACTIVE; 28KDIGG Band NON-REACTIVE; 30KDIGG Band NON-REACTIVE; 39KDIGG Band REACTIVE; 39KDIGM Band NON-REACTIVE; 41KDIGG Band REACTIVE; 41KDIGM Band REACTIVE; 45KDIGG Band NON-REACTIVE; 58KDIGG Band REACTIVE; 66KDIGG Band NON-REACTIVE; 93KDIGG Band NON-REACTIVE; Lyme Antibodies, WB IgG NEGATIVE (NEGATIVE); Lyme Antibodies, WB IgM POSITIVE (NEGATIVE)
== END 2022-10-11 15:31 | disposition home or self-care (01) | DRG 872 ==
LOC: ED 18:00 → SUATTDRO 20:27 → 2S 20:27